=== PATIENT | female | born 1950 | race Caucasian/White ===

== ENCOUNTER 2017-08-21 17:42 | Emergency (ER) | payer MEDICARE ==
[2017-08-21] MEDS ORDERED: Lidocaine 1% w/Epinephrine 1:100K 20 ML VIAL ONE (18:31)
[2017-08-21] MEDS ORDERED: HYDROcodone/Acetaminophen 5/325 mg Tablet ONE (18:37)
[2017-08-21] MEDS ORDERED: Adacel (T-DAP) 0.5 ML VIAL ONE (18:38)
--- NOTE | 2017-08-21 19:10 | RAD ---
THREE VIEWS OF THE RIGHT FOOT 08/21/17 COMPARISON: None. HISTORY: Trauma, pain, foot laceration. FINDINGS: No displaced fracture or evidence of dislocation is seen. No radiopaque foreign body. Mild enthesophy te formation noted at the origin of the plantar aponeurosis. IMPRESSION: No acute osseous abnormality. POS: [facility]
== END 2017-08-21 19:27 | disposition home or self-care (01) ==
LOC: ERS 17:42
DX: S91.011A Laceration without foreign body, right ankle, initial encounter (principal); I10 Essential (primary) hypertension; E11.9 Type 2 diabetes mellitus without complications; I25.2 Old myocardial infarction; Z79.82 Long term (current) use of aspirin; Z79.899 Other long term (current) drug therapy; W45.8XXA Other foreign body or object entering through skin, initial encounter
CPT/HCPCS: 12001; 90471; 90715; J2001

== ENCOUNTER 2018-02-13 14:10 | Outpatient (CLI) | payer MEDICARE ==
--- NOTE | 2018-02-13 16:02 | RAD ---
FRONTAL AND LATERAL IMAGING OF THE CHEST: Date: 02-13-18 Comparison: 08-13-08 History: Chest heaviness. FINDINGS: Heart and mediastinal contours are stable. No pneumothorax, pleural fluid, focal consolidation, or al veolar edema. There is atherosclerotic calcification of the abdominal aorta. There is disc space narr owing and anterior osteophyte formation of the midthoracic spine. Findings are stable when compared t o the prior exams. Probable tiny nodular density noted laterally within the right upper lobe, measuri ng in the 3-4 mm range suggesting a stable small granuloma. IMPRESSION: No acute findings. POS: [facility]
== END 2018-02-13 14:11 | disposition home or self-care (01) ==
LOC: RAD-FRANK 14:10
PROVIDERS: ATTEND Nurse Practitioner Family
DX: R07.9 Chest pain, unspecified (principal)
CPT/HCPCS: 71046

== ENCOUNTER 2018-03-06 09:49 | Outpatient (CLI) | payer MEDICARE | END 2018-03-06 09:50 | disposition home or self-care (01) | LOC: BICMAMMO 09:49 | PROVIDERS: ATTEND Obstetrics & Gynecology | DX: Z12.31 Encounter for screening mammogram for malignant neoplasm of breast (principal) | CPT/HCPCS: 77063; 77067 ==

== ENCOUNTER 2018-09-26 05:52 | Day surgery (SDC) | payer MEDICARE ==
[2018-09-25 10:18] VITALS: BMI 28.5
[2018-09-26] MEDS ORDERED: Iopamidol 370 76% 100 ML VIAL ONE (20:14)
== END 2018-09-26 13:38 | disposition home or self-care (01) ==
LOC: CCL 05:52
PROVIDERS: ATTEND Internal Medicine Cardiovascular Disease
PROC: 4A023N7 Measurement of Cardiac Sampling and Pressure, Left Heart, Percutaneous Approach (ICD-10-PCS; principal; 2018-09-26)
PROC: B2051ZZ Plain Radiography of Left Heart using Low Osmolar Contrast (ICD-10-PCS; 2018-09-26)
DX: I25.10 Atherosclerotic heart disease of native coronary artery without angina pectoris (principal); I25.2 Old myocardial infarction; I10 Essential (primary) hypertension; E78.5 Hyperlipidemia, unspecified; F32.9 Major depressive disorder, single episode, unspecified; M10.9 Gout, unspecified; Z86.73 Personal history of transient ischemic attack (TIA), and cerebral infarction without residual deficits; Z87.891 Personal history of nicotine dependence; Z79.02 Long term (current) use of antithrombotics/antiplatelets; Z79.899 Other long term (current) drug therapy; Z88.0 Allergy status to penicillin; Z88.2 Allergy status to sulfonamides; Z88.8 Allergy status to other drugs, medicaments and biological substances
CPT/HCPCS: 76942; 93458; C1760; C1769; J1644; Q9967

== ENCOUNTER 2018-11-17 09:02 | Observation (INO) | payer MEDICARE ==
[2018-11-17 09:35] LABS: #Basophils 0.1 thou/uL (0.0-0.2); #Eosinphils 0.2 thou/uL (0.0-0.7); #Lymphocytes 1.9 thou/uL (1.20-3.40); #Monocytes 0.5 thou/uL (0.11-0.59); #Neutrophils 4.1 thou/uL (1.40-6.50); %Basophils 1.1 % (0.0-1.0); %Eosinophils 2.3 % (0.0-10.0); %Lymphocytes 28.5 % (21.0-51.0); %Monocytes 7.2 % (0.0-10.0); %Neutrophils 60.8 % (42.0-75.0); Hemoglobin 15.1 g/dL (12.0-16.0); Mean Corpuscular HGB CONC 35.1 g/dL (32.0-36.0); Mean Corpuscular Hemoglobin 31.6 pg (27.0-31.0); Mean Corpuscular Volume 89.9 fL (78.0-98.0); Mean Platelet Volume 8.7 fL (7.4-10.4); Platelet Count 203 thou/uL (130-400); RBC Distribution Width 13.1 % (11.5-14.5); Red Blood Cell (RBC) Count 4.77 mill/uL (4.20-5.40); White Blood Cell (WBC) Count 6.8 thou/uL (4.8-10.8)
--- NOTE | 2018-11-17 09:39 | RAD ---
Chest one view HISTORY: Dizziness. Dyspnea. COMPARISON: 02/13/2018. FINDINGS: Cardiac silhouette is magnified by projection. Pulmonary vasculature is unremarkable. Media stinum and aortic calcification. Lungs remain hyperinflated. Chronic scarring at the right posterior medial lung base. No lobar consolidation or evidence of pneumothorax. Evidence of chronic r ight rotator cuff tear. IMPRESSION: Pulmonary hyperinflation. Chronic-type findings are stable. Atherosclerosis.
[2018-11-17 09:55] LABS: ALT (SGPT) 19 U/L (8-55); AST (SGOT) 22 U/L (5-34); Albumin 4.6 g/dL (3.4-4.8); Alkaline Phosphatase 128 U/L (40-150); Anion Gap 12 mmol/L (10-20); BUN (Urea Nitrogen) 17 mg/dL (9.8-20.1); Bilirubin, Total 0.7 mg/dL (0.2-1.2); CK (CPK) 75 U/L (29-168); Calc. Creatinine Clearance 0 mL/min (70-130); Carbon Dioxide 24 mmol/L (23-31); Chloride 105 mmol/L (98-107); Estimated GFR-MDRD 57; Glucose 107 mg/dL (80-115); Potassium 3.3 mmol/L (3.5-5.1); Protein, Total 7.6 g/dL (6.0-8.3); Sodium 138 mmol/L (136-145)
[2018-11-17 10:29] LABS: Bacteria/HPF None Seen HPF (None Seen); Bilirubin Negative (Negative); Blood, Urine Negative (Negative); Clarity Turbid (Clear); Glucose, Urine (Dipstick) Normal (Negative); Leukocyte 75 Leu/uL (Negative); Nitrite Negative (Negative); Protein, Urine (Dipstick) 20 mg/dL (Neg-Trace); RBC/HPF 0-3 HPF (0-3); Squamous Epithelial 0-3 HPF (0-3); Urobilinogen Normal mg/dL (Less than 2)
[2018-11-17 10:35] LABS: Mucous/LPF 1+ LPF (<2+)
--- NOTE | 2018-11-17 10:35 | CT ---
EXAM: CT brain without contrast HISTORY: 2 episodes of feeling weird. Possible stroke. COMPARISON: 01/19/2011 TECHNIQUE: Multiple contiguous axial images were obtained and a CT of the brain without contrast. FINDINGS: There are scattered hypodensities in the subcortical and periventricular white matter consi stent with small vessel ischemic disease. There is no evidence of hydrocephalus, intracranial hemorrhage, or extra-axial fluid collection. The calvarium and overlying soft tissues are unremarkable. The visualized paranasal sinuses and masto id air cells are well aerated. IMPRESSION: No evidence of acute intracranial abnormality
[2018-11-17] MEDS ORDERED: Aspirin Chewable 81 MG TAB ONE (11:21)
[2018-11-17] MEDS ORDERED: ISOVUE-370 76%-LOCM 1 ML ONE (16:21)
[2018-11-17] MEDS ORDERED: Ondansetron PF 4 MG/2 ML Vial IVP PRN ×3 (16:57→17:47)
[2018-11-17] MEDS ORDERED: Ondansetron ODT 4 MG TAB SL PRN (16:57)
[2018-11-17] MEDS ORDERED: hydrALAZINE 20 MG/ML VIAL SLOW IVP PRN (17:47)
[2018-11-17] MEDS ORDERED: Acetaminophen 325 MG TAB PO PRN (17:47)
[2018-11-17] MEDS ORDERED: Ondansetron ODT 4 MG TAB PO PRN ×2 (17:47)
--- NOTE | 2018-11-17 20:21 | CT ---
CT ANGIOGRAM NECK WITH IV CONTRAST AND 3D RECONSTRUCTIONS: HISTORY: Aphagia and dysarthria. Left-sided facial numbness that has now resolved. TIA. COMPARISON: None. FINDINGS: There is mild atherosclerotic calcification seen involving the aortic arch and the origin of the grea t vessels. There is a common origin of the nominate artery and left common carotid artery. The bilateral subclavian arteries, as well as the bilateral common carotid arteries are patent. There is prominent atherosclerotic plaque and atherosclerotic calcification involving the lateral dis ebony common carotid arteries, as well as involving the carotid bulbs and the proximal internal carotid arteries, resulting in irregularity of the lumen. There is mild (less than 50%) narrowing involving the proximal internal carotid arteries bilaterally, greater on the left. There is mild atherosclero tic plaque and narrowing involving the proximal left external carotid artery. The right external car otid artery is patent. The vertebral arteries are co-dominant and patent bilaterally. The basilar artery appears patent. The intracranial arteries are not evaluated on this exam. A subcentimeter, noz-wmtpz-jq-characterize, hypodense lesion is seen in the right lobe of the thyroid gland. The lung apices demonstrate biapical pleural and parenchymal scarring, which is partially calcified o n the right. Bilateral parotid and submandibular glands have a normal appearance. A few increased density nodules are seen in each parotid gland, likely related to intraparotid lymph nodes. Degenerative changes are seen in the cervical spine. A mucus retention cyst is noted in the left maxillary antrum, with mucosal thickening seen at the pos terior right ethmoidal air cell. IMPRESSION: 1. Atherosclerotic plaque and calcification involving the carotid bulbs and proximal internal caroti d arteries with mild narrowing within the proximal internal carotid arteries bilaterally, greater on the left, but the degree of narrowing is less than 50%. 2. Patent bilateral vertebral arteries. 3. Intracranial circulation was not imaged on this examination. 4. Chronic biapical lung changes. 5. Degenerative changes in the cervical spine. 6. Subcentimeter, cky-ymrwl-na-characterize, hypodense lesion, right lobe of thyroid gland. POS: [facility]
[2018-11-17] MEDS: Amlodipine 5 MG TAB PO SCH (20:55)
[2018-11-17] MEDS: Carvedilol 25 MG TAB PO SCH (20:55)
[2018-11-17] MEDS ORDERED: Famotidine 20 MG TAB PO SCH (21:00)
--- NOTE | 2018-11-17 23:20 | HP ---
PRIMARY CARE PHYSICIAN: RAUL Fam CHIEF COMPLAINT: Feeling dizzy and muscle pressure in my ears. HISTORY OF PRESENT ILLNESS: Ms. Suarez is a very pleasant 68-year-old female, who has a history of hypertension, hypercholesterolemia, and coronary artery disease. She was in her usual state of health until about 3 a.m. this morning, when she started having an episode of feeling dizzy and mild headache. She describes it as having a muscle pressure in both of her ears, which started quite suddenly and it lasted about 10 to 15 minutes. She said she had another episode around 7:30 a.m. This time, her hands and her legs felt weak and she felt like there was an ice cold feeling in her chest. She said she thought she was "." She also had some nausea and vomited once and around 8, her had come in from the field and she was concerned about this sensation and asked to be taken to the ER. In the ER, she was feeling a little bit better, but was feeling tired all over. During this time, she denied having any specific weakness in her arms or legs other than just a generalized weakness. No pains in her chest that she could say. No shortness of breath, although she says she could not really tell and she denies any sinus congestion, but says that a couple of days ago she had a lot of sneezing off and on. Otherwise, no other complaints. She does have a history of coronary artery disease, but says these symptoms did not seem like when she had her heart attack before and it is also noted that she had a cardiac catheterization just a month ago, in which there was just some mild coronary artery disease, but no significant flow-limiting disease. REVIEW OF SYSTEMS: CONSTITUTIONAL: There has been no fevers or chills. No night sweats. No weight loss. HEENT: As the history of present illness. CARDIOVASCULAR: She denies any chest pain. No shortness of breath. No PND. No orthopnea. No lower extremity edema. GASTROINTESTINAL: She has had some nausea and vomiting. No abdominal pain. No hematemesis. No hematochezia. GENITOURINARY: No urinary frequency or hematuria. No hesitancy. MUSCULOSKELETAL: No muscle pains, weakness, or joint pains. NEUROLOGIC: No focal weakness. No seizures. SKIN AND INTEGUMENT: No skin changes. No rash. PSYCHIATRIC: No symptoms of anxiety or depression. PAST MEDICAL HISTORY: Significant for gout, hypertension, hypercholesterolemia, coronary artery disease, and cerebrovascular disease in 2010, which left her with some speech disturbance. PAST SURGICAL HISTORY: She has had a cardiac catheterization, appendectomy, hysterectomy and tonsillectomy. ALLERGIES: TO BENADRYL, WHICH CAUSED HER SHAKE WELL PENICILLIN AND SULFA, WHICH CAUSED HER A RASH. SOCIAL HISTORY: She lives with her in [place]. She is a former smoker. She smoked for about 20 years. No alcohol use and she is a full code. FAMILY HISTORY: History of coronary artery disease in her father, who had bypass surgery and some rhythm problems and sister also had coronary artery disease. CURRENT MEDICATIONS: Include; 1. Zyrtec 10 mg daily. 2. Lasix 40 mg daily. 3. Famotidine 40 mg a day. 4. Plavix 75 mg daily. 5. Carvedilol 12.5 mg twice a day. 6. Amlodipine 5 mg daily. 7. Allopurinol 300 mg daily. 8. Colchicine 0.6 mg daily. PHYSICAL EXAMINATION: GENERAL: She is alert and oriented. She appears to be in no acute distress. She is well developed and well nourished. VITAL SIGNS: Blood pressure was 143/91, heart rate 65, respiratory rate of 17, and temperature is 97. HEENT: Her pupils are equal, round, and reactive. Extraocular muscles are intact. Her sclerae are anicteric. Tympanic membranes pearly manrique. There is no fluid behind the drums. Throat, there is no erythema, no exudates. NECK: No adenopathy. No bruits. LUNGS: Clear to auscultation. I did not appreciate any wheezing. No rales. No rhonchi. CARDIOVASCULAR: She has a normal S1 and S2. I did not appreciate an S3 or S4. No murmurs, clicks, or rubs. ABDOMEN: Soft. It is nontender and nondistended. Positive for bowel sounds. There is no rebound or guarding. No organomegaly. EXTREMITIES: There is no calf tenderness. No erythema. No joint effusions. NEUROLOGIC: Her cranial nerves 2 through 12 are grossly intact. Her muscle strength is 5/5 in both her upper and lower extremities. She does not have any nystagmus. SKIN AND INTEGUMENT: No skin changes. No rash. LABORATORY DATA: On her EKG, sinus rhythm, the rate is 58. She had some Q-waves in II, III, and AVF as well as some nonspecific ST wave changes. On her chest x-ray, her heart size is normal. She does have some mild hyperinflation. There is no increase in her pulmonary vascular markings. This is also by my reading. CBC; white blood cell count 6.8, hemoglobin 15.1, hematocrit is 42.9, and platelet count is 203. Sodium is 138, potassium 3.3, chloride is 105, CO2 is 24, BUN of 17, creatinine 0.96, and glucose is 107. Troponin is less than 0.010. Urinalysis was essentially negative except for some white blood cells and 2+ crystals. ASSESSMENT: This is a pleasant 68-year-old female, who presents to the emergency room with some unusual symptomatology including feeling dizzy, muscle pressure in her ears as well as ice cold feeling in her chest. Initially, I was thinking coronary artery disease, but she had a recent cardiac catheterization just a month ago without any significant flow-limiting disease. Her head and neck exam is essentially normal. And I was not able to elicit any nystagmus. However, with a brief episodic description of her symptoms, there could be a concern for possible transient ischemic attack. With the dizziness, the concern would be for the posterior circulation. Therefore, the patient will be treated as if this is a form of transient ischemic attack. Arrhythmias also a potential possibility as well as possible fluctuations in blood pressure such as orthostatic hypotension. Therefore, for her evaluation, she will be placed in observation. We will get a CT angiogram of the head and neck to look at her cerebral vascular circulation. We will also get an echocardiogram and monitor her on telemetry. We will also check orthostatic vital signs as well. 1. For hypertension, we will continue her usual antihypertensive medications as well as p.r.n. medicines. 2. Coronary artery disease. This appears to be clinically stable. At least her initial troponin was negative and as previously mentioned, she has had a recent cardiac catheterization without any significant new findings. 3. Gout. This appears to be clinically quiescent and we will continue her usual medications including allopurinol and further recommendations will depend on the patient's clinical course. Job ID: [id number]
[2018-11-18 04:43] LABS: #Basophils 0.1 thou/uL (0.0-0.2); #Eosinphils 0.2 thou/uL (0.0-0.7); #Monocytes 0.7 thou/uL (0.11-0.59); #Neutrophils 4.7 thou/uL (1.40-6.50); %Basophils 0.8 % (0.0-1.0); %Eosinophils 2.5 % (0.0-10.0); %Lymphocytes 26.1 % (21.0-51.0); %Monocytes 8.8 % (0.0-10.0); %Neutrophils 61.7 % (42.0-75.0); Hemoglobin 13.8 g/dL (12.0-16.0); Mean Corpuscular HGB CONC 34.4 g/dL (32.0-36.0); Mean Corpuscular Hemoglobin 32.4 pg (27.0-31.0); Mean Platelet Volume 8.4 fL (7.4-10.4); Platelet Count 188 thou/uL (130-400); RBC Distribution Width 13.3 % (11.5-14.5); Red Blood Cell (RBC) Count 4.26 mill/uL (4.20-5.40); White Blood Cell (WBC) Count 7.6 thou/uL (4.8-10.8)
[2018-11-18 04:58] LABS: Anion Gap 12 mmol/L (10-20); BUN (Urea Nitrogen) 18 mg/dL (9.8-20.1); Calc. Creatinine Clearance 72 mL/min (70-130); Calcium 9.8 mg/dL (7.8-10.44); Carbon Dioxide 26 mmol/L (23-31); Cardiac Risk 6.4 (Less than 4.5); Chloride 107 mmol/L (98-107); Cholesterol 257 mg/dl (< 200 Desired); Estimated GFR-MDRD 61; Glucose 101 mg/dL (80-115); HDL Cholesterol 40 mg/dL (>60 Neg Risk); LDL Cholesterol, Calculated 160 mg/dL; Potassium 4.1 mmol/L (3.5-5.1); Sodium 141 mmol/L (136-145); Triglycerides 286 mg/dL (Less than 150)
[2018-11-18] MEDS ORDERED: Clopidogrel Bisulfate 75 MG TAB PO SCH (09:00)
[2018-11-18] MEDS ORDERED: Allopurinol 300 MG TAB PO SCH (09:00)
[2018-11-18] MEDS ORDERED: Aspirin 325 mg Enteric Coated Tablet PO SCH (09:00)
[2018-11-18] MEDS ORDERED: Fish Oil 1,000 MG CAP PO SCH (09:00)
[2018-11-18] MEDS ORDERED: Enoxaparin Sodium 40 MG/0.4 ML SYRINGE SC SCH (09:00)
--- NOTE | 2018-11-18 09:12 | MRI ---
MRI BRAIN WITHOUT CONTRAST: Date: 11/18/18 HISTORY: TIA. FINDINGS: Correlation is made with CT brain of 11/17/18 and 01/19/11. An old infarction in the left posterior frontal lobe is again seen. Multiple foci of T2 prolongation are present in the periventricular white matter consistent with chronic small vessel ischemic disease . The ventricular size is appropriate and the basilar cisterns are patent. No restricted diffusion is seen. No evidence of acute infarct, hemorrhage, midline shift, or abnormal extra-axial fluid collections are seen. There is mild mucosal disease in the paranasal sinuses. IMPRESSION: No evidence of acute intracranial process. POS: [facility]
[2018-11-18] MEDS: Amlodipine 5 MG TAB PO SCH (10:02)
[2018-11-18] MEDS: Carvedilol 25 MG TAB PO SCH (10:03)
[2018-11-18 15:50] VITALS: BP 156/74; TEMP 97.5
--- NOTE | 2018-11-18 18:26 | CON ---
DATE OF CONSULTATION: 11/18/2018 CONSULTING PHYSICIAN: Hospitalist Service. IMPRESSION: 1. Probable migraine. 2. Prior stroke with residual partial expressive aphasia. 3. Current management with stroke prevention plan appears adequate. PLAN: Monitor for further events before deciding on path of treatment. HISTORY OF PRESENT ILLNESS: Ms. Suarez is a 68-year-old white female with a past history of stroke and migraine headache. She has not been bothered with a migraine in quite some time. She was getting ready early in the morning when she started experiencing a fairly severe left frontal headache. This was associated with some progressive nausea and dizziness. She felt a bit lightheaded, but did not lose consciousness. She did start to vomit. She felt generally weak, but was able to get around independently. She had a cold feeling across her chest. She came into the emergency room for evaluation. Her symptoms lasted about 8 hours. She is now back to her baseline. Her MRI of the brain showed an old area of infarction in the left frontal region. No new acute changes were found. CT angiogram showed some less than 50% bilateral carotid disease. Lipid ratio was 6.4. Urine suggested a mild urinary tract infection. PAST MEDICAL HISTORY: As listed. ALLERGIES: BENADRYL, SULFA, PENICILLIN. FAMILY HISTORY: Noncontributory. MEDICATIONS: Reviewed. REVIEW OF SYSTEMS: Ten-system review of systems is otherwise negative. PHYSICAL EXAMINATION: GENERAL: She is a healthy-appearing elderly woman, in no distress. VITAL SIGNS: Have been stable. She is afebrile. HEENT: Pupils equal and reactive. Conjunctivae clear. Oropharynx clear. NECK: Supple. EXTREMITIES: No cyanosis or edema. NEUROLOGIC: She is alert and cooperative. Her speech is clear, but has a pausing quality as she searches for words frequently during the conversation. No facial asymmetry was appreciated. She seemed to have equal strength. Sensation was intact bilaterally. No abnormal movements were seen. She can walk independently. IMAGING STUDIES: EKG shows sinus rhythm. SUMMARY: This is a 68-year-old woman with a past history of a stroke, who presented with severe headache, nausea, vomiting, and lightheadedness suggesting migraine. Her MRI was negative for any ischemic event. I would be happy to follow up with her as an outpatient. Job ID: [id number]
--- NOTE | 2018-11-19 00:56 | DIS ---
DATE OF ADMISSION: 11/17/2018 DATE OF DISCHARGE: 11/18/2018 CHIEF COMPLAINT ON ADMISSION: Headache, dizziness, "chest coldness." DISCHARGE DIAGNOSES: 1. Probable migraine, acute cerebrovascular accident ruled out. 2. Prior cerebrovascular accident with mild residual expressive aphasia. 3. Mild multivessel coronary artery disease per left heart catheterization September 2018, with 35% lesion in LAD and 40% lesion in the circumflex, followed by Dr. Leyva. 4. Hyperlipidemia, poorly controlled. 5. Hypertension. 6. Gout. BRIEF HOSPITAL COURSE: Ms. Suarez is a very pleasant 68-year-old female with past medical history significant for hypertension, hypercholesterolemia, mild coronary artery disease per left heart catheterization last month and prior CVA, who presented with complaints of dizziness and headache. She described some other symptoms such as a muscle pressure in both of her ears, as well as "coldness" feeling in her chest. She did have some associated nausea and vomiting and due to her symptoms, she was brought to the ER by her family for further workup and treatment. The patient underwent acute CVA rule out, which included an MRI which revealed an old infarction of the left posterior frontal lobe, multiple foci of T2 prolongation in the periventricular white matter consistent with chronic small vessel ischemic disease, and no evidence of acute intracranial process. Her CTA of the head and neck was negative for any significant stenosis. Her presenting symptoms have all resolved. She was seen in consultation by Dr. Aldridge, who felt that her symptoms were most likely consistent with migraine headache. He recommended continued medical therapy, aspirin and Plavix. The patient feels well today. She has ambulated without issue. She denies any further chest pain, nausea, vomiting, or dizziness. She has no headache. Her workup here has been negative. Her lab work was significant for hyperlipidemia with triglycerides reading of 286, cholesterol 257, LDL 160, and HDL of 40. Statin therapy was initiated given the fact that she has had history of prior CVA and has known coronary artery disease. DISCHARGE DISPOSITION: Home. DISCHARGE CONDITION: Stable. FOLLOWUP AND DISCHARGE INSTRUCTIONS: The patient will follow up with both Neurology as well as her item processing clerk, Dr. Leyva, with whom she has an appointment next week. Of note, her echocardiogram showed some diastolic dysfunction and mild LVH, but had preserved EF. She will continue her aspirin and Plavix. New medications will be statin. I have sent in a prescription for atorvastatin 20 mg p.o. at bedtime. She will need to have her liver function enzymes, as well as her cholesterol rechecked in approximately 3 months. She will continue follow up with her PCP as well. She will be discharged home in good condition today. Appreciate Neurology recommendations. Job ID: [id number]
== END 2018-11-18 18:19 | disposition home or self-care (01) ==
LOC: ERS 09:02 → ERHOLD 11:05 → 2SE 16:51
PROVIDERS: ADMIT Internal Medicine; ATTEND Internal Medicine
DX: R42 Dizziness and giddiness (principal); R51 Headache; I10 Essential (primary) hypertension; E78.5 Hyperlipidemia, unspecified; M10.9 Gout, unspecified; I25.10 Atherosclerotic heart disease of native coronary artery without angina pectoris; E78.00 Pure hypercholesterolemia, unspecified; I25.2 Old myocardial infarction; Z79.82 Long term (current) use of aspirin; Z88.0 Allergy status to penicillin; Z79.899 Other long term (current) drug therapy; Z88.2 Allergy status to sulfonamides; Z88.8 Allergy status to other drugs, medicaments and biological substances
CPT/HCPCS: 70450; 70498; 70551; 71045; 80048; 80053; 80061; 82550; 84484; 85025 ×2; 93005; 93306; 96372; 99285; G0378 ×3; 36415; 81003; 81015; J1650; Q9966

== ENCOUNTER 2019-04-02 10:15 | Outpatient (CLI) | payer MEDICARE ==
--- NOTE | 2019-04-02 12:28 | MMO ---
Bilateral MAMMO Bilat Screen [facility]. CLINICAL HISTORY: Patient is 68 years old and is seen for screening. The patient has no family history of breast cancer. The patient has no personal history of cancer. VIEWS: The views performed were: bilateral craniocaudal with tomosynthesis and bilateral mediolateral oblique with tomosynthesis. FILMS COMPARED: The present examination has been compared to prior imaging studies performed at [facility] on 02/25/2015, 02/27/2016, 02/28/2017 and 03/06/2018. This study has been interpreted with the assistance of computer-aided detection. MAMMOGRAM FINDINGS: There are scattered fibroglandular densities. There are no suspicious masses, suspicious calcifications, or new areas of architectural distortion. IMPRESSION: THERE IS NO MAMMOGRAPHIC EVIDENCE OF MALIGNANCY. A ROUTINE FOLLOW-UP MAMMOGRAM IN 1 YEAR IS RECOMMENDED. THE RESULTS OF THIS EXAM WERE SENT TO THE PATIENT. ACR BI-RADS Category 1 - Negative MAMMOGRAPHY NOTE: 1. A negative mammogram report should not delay a biopsy if a dominant of clinically suspicious mass is present. 2. Approximately 10% to 15% of breast cancers are not detected by mammography. 3. Adenosis and dense breasts may obscure an underlying neoplasm. Reported by: GAGANDEEP WALLS MD Electonically Signed: [id number]
== END 2019-04-02 10:16 | disposition home or self-care (01) ==
LOC: BICMAMMO 10:15
PROVIDERS: ATTEND Obstetrics & Gynecology
DX: Z12.31 Encounter for screening mammogram for malignant neoplasm of breast (principal)
CPT/HCPCS: 77063; 77067

== ENCOUNTER 2020-02-29 16:20 | Inpatient (IN) | payer MEDICARE ==
[~2020-02-29 16:20] MED LIST: Iopamidol-370 76% 500 ML 1 ML ONE
--- NOTE | 2020-02-29 18:00 | RAD ---
Chest one view HISTORY: Dyspnea. COMPARISON: 11/17/2018. FINDINGS: Cardiac silhouette is magnified and upper limits of normal in size. Pulmonary vasculature i s unremarkable. Mediastinum is midline with aortic calcification. No lobar consolidation or evidence of pneumothorax. IMPRESSION : No active cardiopulmonary abnormalities are demonstrated. Atherosclerosis.
[2020-02-29 18:07] LABS: #Basophils 0.1 thou/uL (0.0-0.2); #Eosinphils 0.3 thou/uL (0.0-0.7); #Lymphocytes 2.3 thou/uL (1.20-3.40); #Monocytes 0.7 thou/uL (0.11-0.59); #Neutrophils 5.3 thou/uL (1.40-6.50); %Basophils 0.8 % (0.0-1.0); %Eosinophils 3.4 % (0.0-10.0); %Lymphocytes 26.2 % (21.0-51.0); %Monocytes 7.6 % (0.0-10.0); %Neutrophils 61.9 % (42.0-75.0); Hemoglobin 13.3 g/dL (12.0-16.0); Mean Corpuscular HGB CONC 34.2 g/dL (32.0-36.0); Mean Corpuscular Hemoglobin 32.2 pg (27.0-31.0); Mean Platelet Volume 8.4 fL (7.4-10.4); Platelet Count 206 thou/uL (130-400); RBC Distribution Width 13.2 % (11.5-14.5); Red Blood Cell (RBC) Count 4.14 mill/uL (4.20-5.40); White Blood Cell (WBC) Count 8.6 thou/uL (4.8-10.8)
--- NOTE | 2020-02-29 18:22 | CT ---
CT head noncontrast HISTORY: TIA. COMPARISON: 11/17/2018. FINDINGS: There is no evidence of acute intracranial hemorrhage or infarct. Encephalomalacia in the l eft frontal lobe and each basal ganglia consistent with old areas of ischemic insult are stable. There is no mass effect or shift of midline structures. Visualized paranasal sinuses remain well aera anisa. IMPRESSION : Chronic findings are stable. No acute intracranial abnormalities are demonstrated.
[2020-02-29 18:26] LABS: ALT (SGPT) 30 U/L (8-55); AST (SGOT) 25 U/L (5-34); Albumin 4.1 g/dL (3.4-4.8); Alkaline Phosphatase 109 U/L (40-110); Anion Gap 15 mmol/L (10-20); BUN (Urea Nitrogen) 23 mg/dL (9.8-20.1); Bilirubin, Total 0.5 mg/dL (0.2-1.2); Calc. Creatinine Clearance 0 mL/min (70-130); Calcium 9.3 mg/dL (7.8-10.44); Carbon Dioxide 27 mmol/L (23-31); Chloride 108 mmol/L (98-107); Estimated GFR-MDRD 43; Globulin 2.6 g/dL (2.4-3.5); Glucose 105 mg/dL (83-110); Magnesium 2.3 mg/dL (1.6-2.6); Protein, Total 6.7 g/dL (6.0-8.3); Sodium 146 mmol/L (136-145)
[2020-02-29] MEDS ORDERED: Aspirin Chewable 81 MG TAB ONE ×2 (18:40)
[2020-02-29 19:15] LABS: Bilirubin Negative (Negative); Blood, Urine Negative (Negative); Calcium Oxalate Crystals 2+ HPF (None Seen); Clarity Clear (Clear); Glucose, Urine (Dipstick) Normal (Negative); Ketone, Urine Negative (Negative); Leukocyte 500 Leu/uL (Negative); Nitrite Negative (Negative); Protein, Urine (Dipstick) Negative (Neg-Trace); Specific Gravity, Urine 1.019 (1.002-1.036); Urobilinogen Normal mg/dL (Less than 2); WBC/HPF 21-50 HPF (0-3); pH, Urine 5.5 (5.0-9.0)
[2020-02-29 19:19] LABS: Bacteria/HPF 1+ HPF (None Seen)
[2020-02-29] MEDS ORDERED: Ondansetron PF 4 MG/2 ML Vial IVP PRN (21:08)
[2020-02-29] MEDS ORDERED: Ondansetron ODT 4 MG TAB PO PRN (21:08)
--- NOTE | 2020-02-29 21:26 | PDOC.HHP ---
Hospitalist HPI - History of Present Illness Left-sided weakness History of Present Illness: This is a 69-year-old female patient with a history of stroke,Hypertension, hyperlipidemia who presents today with left-sided weakness while she was shopping. Patient was in the supermarket with her when she noticed that she had dragging her left foot with stiff feeling of her left arm. This was concerning to her because this was the third time it had occurred in the past couple of weeks. She decided to come to the ED for further evaluation. At the time of the event, she denied any headache dizziness facial droop. Speech was slurred at baseline but no worsening. She denied any chest pain or palpitations or shortness of breath. As presentation Blood pressure was 168/82, pulse 77, respiratory rate 18 and temperature 97.7. Saturating 97 on room air. Her labs showed sodium of 146, BUN 23, creatinine 1.22. Chest x-ray showed no acute cardiopulmonary process. CT scan of the head showed chronic stroke but no acute changes. She was given 325 mg of aspirin By the time she had arrived at the ED symptoms had disappeared and she was back at baseline with no focal weakness Hospitalist team was consulted for admission Hospitalist ROS - Review of Systems Constitutional: denies: fever, chills, sweats Respiratory: denies: cough, shortness of breath, hemoptysis Cardiovascular: denies: chest pain, palpitations, orthopnea, paroxysmal noc. dyspnea Gastrointestinal: denies: nausea, vomiting, abdominal pain, diarrhea Genitourinary: denies: dysuria, frequency, incontinence Musculoskeletal: denies: neck pain, shoulder pain, arm pain Neurological: reports: weakness, numbness Hospitalist History - Past Medical History Other Medical History: Hypertension, CVA, hyperlipidemia - Past Surgical History Other Surgical History: Hysterectomy, tonsillectomy - Family History Family History: reports: no pertinent history - Social History Smoking Status: Never smoker Alcohol: reports: None Living Situation: With Family Activity level: independent ambulation - Exam General Appearance: awake alert Eye: PERRL, anicteric sclera ENT: normocephalic atraumatic, moist mucosa Neck: supple, symmetric, no lymphadenopathy Heart: RRR, no murmur, no gallops, no rubs, normal peripheral pulses Respiratory: no wheezes, no rales, no ronchi, normal chest expansion, normal pe rcussion Gastrointestinal: soft, non-tender, non-distended, normal bowel sounds Extremities: no cyanosis, no clubbing, no edema Neurological - other findings: Slurred speech otherwise no focal cranial nerve deficits. Power 5/5 in all Psychiatric: normal affect, normal behavior, A&O x 3 Hospitalist Results - Labs Result Diagrams: 02/29/20 17:58 02/29/20 17:58 Lab results: WBC 8.6 thou/uL (4.8-10.8) 02/29/20 17:58 Hgb 13.3 g/dL (12.0-16.0) 02/29/20 17:58 Hct 38.9 % (36.0-47.0) 02/29/20 17:58 MCV 94.0 fL (78.0-98.0) 02/29/20 17:58 Plt Count 206 thou/uL (130-400) 02/29/20 17:58 Neutrophils % 61.9 % (42.0-75.0) 02/29/20 17:58 Sodium 146 mmol/L (136-145) H 02/29/20 17:58 Potassium 4.0 mmol/L (3.5-5.1) 02/29/20 17:58 Chloride 108 mmol/L (98-107) H 02/29/20 17:58 Carbon Dioxide 27 mmol/L (23-31) 02/29/20 17:58 BUN 23 mg/dL (9.8-20.1) H 02/29/20 17:58 Creatinine 1.22 mg/dL (0.6-1.1) H 02/29/20 17:58 Glucose 105 mg/dL (83-110) 02/29/20 17:58 Calcium 9.3 mg/dL (7.8-10.44) 02/29/20 17:58 Total Bilirubin 0.5 mg/dL (0.2-1.2) 02/29/20 17:58 AST 25 U/L (5-34) 02/29/20 17:58 ALT 30 U/L (8-55) 02/29/20 17:58 Alkaline Phosphatase 109 U/L (40-110) 02/29/20 17:58 Troponin I 0.019 ng/mL (< 0.028) 02/29/20 17:58 Serum Total Protein 6.7 g/dL (6.0-8.3) 02/29/20 17:58 Albumin 4.1 g/dL (3.4-4.8) 02/29/20 17:58 Urine Ketones Negative mg/dL (Negative) 02/29/20 18:50 Urine Blood Negative (Negative) 02/29/20 18:50 Urine Nitrite Negative (Negative) 02/29/20 18:50 Ur Leukocyte Esterase 500 Shawna/uL (Negative) A 02/29/20 18:50 Urine RBC 4-6 HPF (0-3) A 02/29/20 18:50 Urine WBC 21-50 HPF (0-3) A 02/29/20 18:50 Ur Squamous Epith Cells 4-6 HPF (0-3) A 02/29/20 18:50 Urine Bacteria 1+ HPF (None Seen) A 02/29/20 18:50 Hospitalist H&P A/P - Plan Plan: This is a 69-year-old female patient history of CVA, hypertension hyperlipidemia who presents to the ED after a brief period of weakness in her left lower limb and numbness in her left upper limb Symptoms had resolved at the time of presentation. She will be admitted and will do for TIA. Stroke/TIA Received aspirinwe will continue MRI, CTA in a.m. PT OT evaluation Fall precautions Neuro consult in a.m. Hypertension We will allow for permissive hypertension Hold blood pressure medications for SBP less than 220. Possible NATIVIDAD/CKD. Creatinine slightly elevated at 1.22 Repeat BMP in a.m. CODE STATUSDNR VT prophylaxisLovenox
[2020-02-29 21:43] LABS: Troponin I 0.016 ng/mL (< 0.028)
--- NOTE | 2020-02-29 22:50 | PDOC.FMACP ---
Advance Care Planning - Note Summary: Advanced Care Planning was discussed. The diagnosis, prognosis and goals of care were discussed. Patient wishes to be DNR. was in the room when she made the decision. Has been on would be her surrogate decision maker
--- NOTE | 2020-02-29 22:52 | CT ---
CT arteriogram head with IV contrast and 3-D imaging HISTORY: TIA. FINDINGS: [place] of [place] is intact. Good contrast flow is demonstrated into each cerebral and cereb ellar system. No focal aneurysm or filling defect evident. Calcification is present within the carotid siphons. IMPRESSION : Atherosclerosis. No acute vascular abnormalities are demonstrated.
[2020-03-01 00:22] LABS: Troponin I Less than 0.010 ng/mL (< 0.028)
[2020-03-01 04:42] LABS: #Basophils 0.1 thou/uL (0.0-0.2); #Eosinphils 0.2 thou/uL (0.0-0.7); #Lymphocytes 1.8 thou/uL (1.20-3.40); #Monocytes 0.5 thou/uL (0.11-0.59); #Neutrophils 3.6 thou/uL (1.40-6.50); %Basophils 1.1 % (0.0-1.0); %Eosinophils 3.8 % (0.0-10.0); %Lymphocytes 28.7 % (21.0-51.0); %Monocytes 8.5 % (0.0-10.0); %Neutrophils 57.9 % (42.0-75.0); Hemoglobin 13.4 g/dL (12.0-16.0); Mean Corpuscular HGB CONC 35.1 g/dL (32.0-36.0); Mean Corpuscular Hemoglobin 33.5 pg (27.0-31.0); Mean Corpuscular Volume 95.3 fL (78.0-98.0); Mean Platelet Volume 8.5 fL (7.4-10.4); Platelet Count 177 thou/uL (130-400); RBC Distribution Width 13.1 % (11.5-14.5); Red Blood Cell (RBC) Count 4.02 mill/uL (4.20-5.40); White Blood Cell (WBC) Count 6.2 thou/uL (4.8-10.8)
[2020-03-01 05:03] LABS: Anion Gap 14 mmol/L (10-20); BUN (Urea Nitrogen) 22 mg/dL (9.8-20.1); Calc. Creatinine Clearance 67 mL/min (70-130); Calcium 9.1 mg/dL (7.8-10.44); Carbon Dioxide 26 mmol/L (23-31); Cardiac Risk 5.8 (Less than 4.5); Chloride 106 mmol/L (98-107); Cholesterol 197 mg/dl (< 200 Desired); Estimated GFR-MDRD 55; Glucose 102 mg/dL (83-110); HDL Cholesterol 34 mg/dL (>60 Neg Risk); LDL Cholesterol, Calculated 100 mg/dL; Potassium 3.8 mmol/L (3.5-5.1); Sodium 142 mmol/L (136-145); Triglycerides 314 mg/dL (Less than 150)
[2020-03-01] MEDS ORDERED: Enoxaparin Sodium 40 MG/0.4 ML SYRINGE ONE (08:08)
[2020-03-01] MEDS: Enoxaparin Sodium 40 MG/0.4 ML SYRINGE SC SCH (08:28)
[2020-03-01] MEDS ORDERED: Iron, Sodium Ferric Gluconate 125 MG in Sodium Chloride 0.9% 100 ML IVPB SCH (09:00)
--- NOTE | 2020-03-01 10:00 | MRI ---
Exam: Brain MRI without contrast HISTORY: Stroke COMPARISON: 11/18/2018 FINDINGS: Calvarial marrow signal intensity: Appropriate T1 signal Gradient echo sequence: No hemorrhage Brain parenchyma: No mass, mass effect or midline shift. Brain volume, age-appropriate. Stable enceph alomalacia and gliosis involving the left frontotemporal region. Cortical manrique-white matter differentiation: Preserved Restricted diffusion: Central arterial flow voids are maintained. Absent restricted diffusion White matter signal intensities: T2, FLAIR white matter hyperintensities due to chronic small vessel ischemic changes Sinuses: Adequate aeration of the paranasal sinuses and mastoid air cells. IMPRESSION: 1. Absent restricted diffusion. No acute infarct.
--- NOTE | 2020-03-01 12:26 | CON ---
NEUROLOGY CONSULTATION DATE OF CONSULTATION: 03/01/2020 REASON FOR CONSULTATION: Left-sided weakness/transient ischemic attack. HISTORY OF PRESENT ILLNESS: Ms. Suarez is a 69-year-old female with history significant for prior TIA, hypertension, hyperlipidemia, presented today with left-sided weakness while she was shopping. History is obtained from the patient and the . Per , he noticed she was dragging her left foot, which felt heavy because of numbness and also there was weakness in the left arm. The patient was concerned about the pinched nerve yesterday and decided to go to a chiropractor, who noticed she was also weak in the left upper extremity and speech was also slurred at baseline, so he advised her to come to the emergency room to be evaluated for stroke. The symptoms lasted for couple of hours. Per the patient's , she has two similar episodes prior to this one. Currently, the patient is back to her baseline. When she arrived at the emergency room, her blood pressure was 168/82, pulse 77, respiratory rate 18. Head CT was done, which did not reveal any acute intracranial pathology. She was given aspirin and admitted for further evaluation. The patient denies nausea, vomiting, headache, chest pain, abdominal pain, problems with swallowing, vertigo, blurred vision, double vision, loss of vision, or loss of consciousness associated with the episode. She denies any recent sick contacts, chest pain, abdominal pain, or exposure to COVID. PAST MEDICAL HISTORY: Hypertension, prior TIAs, and hyperlipidemia. PAST SURGICAL HISTORY: Hysterectomy and tonsillectomy. FAMILY HISTORY: No significant family history for stroke. SOCIAL HISTORY: , lives with her . Denies smoking, alcohol, or illegal drug abuse. Allergies: Penicillin, sulfa, diphenhydramine REVIEW OF SYSTEMS: Constitutional: denies: fever, chills, sweats Respiratory: denies: cough, shortness of breath, hemoptysis Cardiovascular: denies: chest pain, palpitations, orthopnea, paroxysmal noc. dyspnea Gastrointestinal: denies: nausea, vomiting, abdominal pain, diarrhea Genitourinary: denies: dysuria, frequency, incontinence Musculoskeletal: denies: neck pain, shoulder pain, arm pain Neurological: reports: weakness, numbness PHYSICAL EXAMINATION: VITAL SIGNS: Blood pressure 170/90, pulse 80, and respiratory rate 18. General Appearance: awake alert Eye: PERRL, anicteric sclera ENT: normocephalic atraumatic, moist mucosa Neck: supple, symmetric, no lymphadenopathy Heart: RRR, no murmur, no gallops, no rubs, normal peripheral pulses Respiratory: no wheezes, no rales, no ronchi, normal chest expansion, normal percussion Gastrointestinal: soft, non-tender, non-distended, normal bowel sounds Extremities: no cyanosis, no clubbing, no edema Neurological - Mental status, the patient is alert and oriented to person, place, and time. Speech is clear. Recent and remote memory intact. Fund of knowledge is appropriate. Cranial nerves 2 through 12 intact. Motor, muscle tone, and bulk are normal. Strength 5/5 bilaterally. Sensory intact. Cerebellar, finger-nose testing intact. Gait deferred due to the patient's safety reason DATA REVIEWED: Labs were significant for acute kidney injury with BUN of 23 and creatinine of 1.2, rest was essentially unremarkable. Head CT reviewed, which was negative for acute intracranial pathology. MRI of the brain did not reveal any acute intracranial pathology. WBC 8.6 thou/uL (4.8-10.8) 02/29/20 17:58 Hgb 13.3 g/dL (12.0-16.0) 02/29/20 17:58 Hct 38.9 % (36.0-47.0) 02/29/20 17:58 MCV 94.0 fL (78.0-98.0) 02/29/20 17:58 Plt Count 206 thou/uL (130-400) 02/29/20 17:58 Neutrophils % 61.9 % (42.0-75.0) 02/29/20 17:58 Sodium 146 mmol/L (136-145) H 02/29/20 17:58 Potassium 4.0 mmol/L (3.5-5.1) 02/29/20 17:58 Chloride 108 mmol/L (98-107) H 02/29/20 17:58 Carbon Dioxide 27 mmol/L (23-31) 02/29/20 17:58 BUN 23 mg/dL (9.8-20.1) H 02/29/20 17:58 Creatinine 1.22 mg/dL (0.6-1.1) H 02/29/20 17:58 Glucose 105 mg/dL (83-110) 02/29/20 17:58 Calcium 9.3 mg/dL (7.8-10.44) 02/29/20 17:58 Total Bilirubin 0.5 mg/dL (0.2-1.2) 02/29/20 17:58 AST 25 U/L (5-34) 02/29/20 17:58 ALT 30 U/L (8-55) 02/29/20 17:58 Alkaline Phosphatase 109 U/L (40-110) 02/29/20 17:58 Troponin I 0.019 ng/mL (< 0.028) 02/29/20 17:58 Serum Total Protein 6.7 g/dL (6.0-8.3) 02/29/20 17:58 Albumin 4.1 g/dL (3.4-4.8) 02/29/20 17:58 Urine Ketones Negative mg/dL (Negative) 02/29/20 18:50 Urine Blood Negative (Negative) 02/29/20 18:50 Urine Nitrite Negative (Negative) 02/29/20 18:50 Ur Leukocyte Esterase 500 Shawna/uL (Negative) A 02/29/20 18:50 Urine RBC 4-6 HPF (0-3) A 02/29/20 18:50 Urine WBC 21-50 HPF (0-3) A 02/29/20 18:50 Ur Squamous Epith Cells 4-6 HPF (0-3) A 02/29/20 18:50 Urine Bacteria 1+ HPF (None Seen) A 02/29/20 18:50 ASSESSMENT AND PLAN: Ms. Suarez is a 69-year-old female, who presented with history of hypertension, hyperlipidemia, and prior transient ischemic attacks, presented with a 2-3 hour history of left upper and lower extremity numbness with weakness of the left lower extremity, which resolved in 2-3 hours. Most likely, transient ischemic attack. MRI of the brain reviewed, which was negative for acute intracranial pathology. CTA of the head and neck did not reveal hemodynamically significant stenosis. Strict control of blood pressure and blood glucose. Check hemoglobin A1c, fasting lipid panel, and TSH. Telemetry to rule out arrhythmias. 2D echo to evaluate for left ventricular ejection fraction. Continue home medications. Continue medical management per primary team. The patient takes baby aspirin at home, consider increasing to full dose of aspirin. Continue high-intensity statin for secondary stroke prevention. Neuro checks every 4 hours. PT/OT/speech. DVT prophylaxis. We will continue to follow. Thank you for the consult. Job ID: [id number] CHRIS
[2020-03-01 13:08] VITALS: BMI 28.8
[2020-03-01] MEDS ORDERED: hydrALAZINE 20 MG/ML VIAL SLOW IVP PRN (13:56)
[2020-03-01] MEDS ORDERED: Carvedilol 25 MG TAB PO SCH (14:00)
[2020-03-01 14:26] LABS: SARS-CoV-2 MS2 Positive; SARS-CoV-2 N Gene Negative; SARS-CoV-2 S Gene Negative; SARS-CoV-2 by NAA Not Detected (NotDetected); SARS-CoV-2 orf1ab Negative
[2020-03-01] MEDS ORDERED: Acetaminophen 325 MG TAB PO PRN (17:45)
--- NOTE | 2020-03-01 20:23 | ULT ---
ULTRASOUND CAROTID STANDARD 03/01/20 HISTORY: Right sided weakness. COMPARISON: CT angiogram neck 2019. Real time manrique scale color and spectral analysis of the extracranial carotid and vertebral arteries. Extensive atherosclerotic plaque throughout both common carotid arteries and proximal internal caroti d artery. No elevated peak systolic velocities within the internal carotid arteries. IMPRESSION: No hemodynamically significant stenosis. POS: HOME
[2020-03-01] MEDS ORDERED: Atorvastatin Calcium 20 MG TAB PO SCH (21:00)
--- NOTE | 2020-03-01 22:53 | PDOC.HOSPP ---
- Subjective Encounter Date: 03/01/20 Encounter Time: 10:00 Subjective: Patient was seen and examined in bed. She had a generally good night. No weakness was worsening slurring of speech No chest pain or shortness of breath. - Objective Vital Signs & Weight: Vital Signs (12 hours) Temp Pulse Resp BP BP BP Pulse Ox 03/01/20 20:00 97.5 F L 72 15 168/97 H 96 03/01/20 17:50 16 164/94 H 03/01/20 16:04 97.5 F L 65 12 166/108 H 166/108 H 96 03/01/20 15:22 16 166/108 H 03/01/20 13:06 97.6 F 75 18 201/105 H 97 Weight Weight 189 lb 4.8 oz I&O: 02/29/20 03/01/20 03/02/20 06:59 06:59 06:59 Intake Total 240 Balance 240 Result Diagrams: 03/01/20 04:17 03/01/20 04:17 Hospitalist ROS - Medication Medications: Active Medications Generic Name Dose Route Start Last Admin Trade Name Freq PRN Reason Stop Dose Admin Acetaminophen 650 mg 03/01/20 17:45 03/01/20 20:54 Acetaminophen 325 Mg Tab PO 650 mg Q6H PRN Administration Pain Atorvastatin Calcium 20 mg 03/01/20 21:00 03/01/20 20:55 Atorvastatin Calcium 20 Mg Tab PO Not Given HS ADELIA Carvedilol 25 mg 03/01/20 14:00 03/01/20 14:41 Carvedilol 25 Mg Tab PO 25 mg 1400 ADELIA Administration Enoxaparin Sodium 40 mg 03/01/20 09:00 03/01/20 08:28 Enoxaparin Sodium 40 Mg/0.4 Ml Syringe SC 40 mg 0900 ADELIA Administration - Exam General Appearance: awake alert Heart: RRR, no murmur, no gallops, normal peripheral pulses Respiratory: no wheezes, no rales, no ronchi, no tachypnea Gastrointestinal: soft, non-tender, non-distended, normal bowel sounds, no palpable masses Extremities: no cyanosis, no clubbing, no edema Neurological: cranial nerve grossly intact, no weakness (Besides slurred speech), no focal deficits, no new deficit Psychiatric: normal affect, normal behavior, A&O x 3 Hosp A/P - Plan This is a 69-year-old female patient with a history of hypertension and stroke admitted on account of left sided weakness with concerns for TIA/stroke. TIA CT scan and follow-up MRI well negative. CTA head was negative Plan is to do carotid Doppler scan scan/echocardiogram Previously been on low-dose aspirin now increased to high Also has been on Plavix for coronary artery diseasewe will continue Discharge after evaluation of echo in a.m. Hypertension Osteoporosis hypertension We will start home carvedilol today Monitor BP NATIVIDAD Resolved
[2020-03-01] MEDS ORDERED: Aspirin 325 mg Enteric Coated Tablet PO SCH (23:00)
[2020-03-02 07:30] VITALS: TEMP 98
[2020-03-02] MEDS: Enoxaparin Sodium 40 MG/0.4 ML SYRINGE SC SCH (08:51)
[2020-03-02] MEDS ORDERED: Aspirin 325 mg Enteric Coated Tablet PO SCH (09:00)
[2020-03-02] MEDS ORDERED: Clopidogrel Bisulfate 75 MG TAB PO SCH (09:00)
[2020-03-02] MEDS ORDERED: Carvedilol 25 MG TAB PO SCH (09:00)
[2020-03-02 10:28] VITALS: BP 120/62
--- NOTE | 2020-03-02 13:44 | PDOC.NEUPN ---
- Subjective Encounter Date: 03/02/20 Subjective: Patient denies any new complaints in the last 24 hours. - Objective Vital Signs & Weight: Vital Signs (12 hours) Temp Pulse Pulse Pulse Resp BP BP 03/02/20 10:28 03/02/20 08:51 03/02/20 08:50 72 84 182/100 H 186/102 H 03/02/20 08:15 03/02/20 07:20 98 F 72 16 03/02/20 04:00 97.9 F 95 20 BP BP BP Pulse Ox 03/02/20 10:28 120/62 03/02/20 08:51 98 03/02/20 08:50 03/02/20 08:15 182/100 H 03/02/20 07:20 98 03/02/20 04:00 168/96 H 95 Weight Weight 189 lb 4.8 oz I&O: 03/01/20 03/02/20 03/03/20 06:59 06:59 06:59 Intake Total 240 650 Balance 240 650 Result Diagrams: 03/01/20 04:17 03/01/20 04:17 Radiology Reviewed by me: Yes EKG Reviewed by me: Yes ROS - Review of Systems Constitutional: denies: fever, chills, sweats, weakness, malaise, other ENT: denies: ear pain, ear discharge, nose pain, nose discharge, nose congestion, mouth pain, mouth swelling, throat pain, throat swelling, other Respiratory: denies: cough, dry, shortness of breath, hemoptysis, SOB with excertion, pleuritic pain, sputum, wheezing, other Cardiovascular: denies: no pertinent history, AFIB, CAD, CHF, HTN, GA, Syncope, Hyperlipidemia, Mitral valve stenosis, Aortic stenosis, Valve insufficiency, Pulmonary hypertension, Other Gastrointestinal: denies: nausea, vomiting, abdominal pain, diarrhea, constipation, melena, hematochezia, other Genitourinary: denies: dysuria, frequency, incontinence, hematuria, retention, other Musculoskeletal: denies: neck pain, shoulder pain, arm pain, back pain, hand pain, leg pain, foot pain, other Skin: denies: rash, lesions, vivien, bruising, other Neurological: denies: weakness, numbness, incoordination, change in speech, confusion, seizures, other All Systems: All other systems reviewed; all pertinent +/- noted in HPI/Subj - Medication Medications: Active Medications Generic Name Dose Route Start Last Admin Trade Name Freq PRN Reason Stop Dose Admin Acetaminophen 650 mg 03/01/20 17:45 03/01/20 20:54 Acetaminophen 325 Mg Tab PO 650 mg Q6H PRN Administration Pain Aspirin 325 mg 03/02/20 09:00 03/02/20 08:51 Aspirin 325 Mg Enteric Coated Tablet PO 325 mg DAILY ADELIA Administration Atorvastatin Calcium 20 mg 03/01/20 21:00 03/01/20 20:55 Atorvastatin Calcium 20 Mg Tab PO Not Given HS ADELIA Carvedilol 25 mg 03/02/20 09:00 03/02/20 08:51 Carvedilol 25 Mg Tab PO 25 mg 09 ADELIA Administration Clopidogrel Bisulfate 75 mg 03/02/20 09:00 03/02/20 08:51 Clopidogrel Bisulfate 75 Mg Tab PO 75 mg DAILY ADELIA Administration Enoxaparin Sodium 40 mg 03/01/20 09:00 03/02/20 08:51 Enoxaparin Sodium 40 Mg/0.4 Ml Syringe SC 40 mg 899 ADELIA Administration Sodium Chloride 10 ml 02/29/20 21:08 03/02/20 08:51 Flush - Normal Saline 10 Ml Syringe IVF 10 ml PRN PRN Administration Saline Flush - Exam General Appearance: awake alert Eye: PERRL ENT: normocephalic atraumatic Neck: supple Respiratory: CTAB Cardiovascular: RRR Gastrointestinal: soft Extremities: no cyanosis Skin: normal turgor Neurological: CN's grossly intact, normal sensation to touch, no weakness, no focal deficits, no new deficit Musculoskeletal: normal tone, normal strength, no muscle wasting PSYCH: normal affect, normal behavior, A&O x 3 Results - Labs Result Diagrams: 03/01/20 04:17 03/01/20 04:17 Lab results: WBC 6.2 thou/uL (4.8-10.8) 03/01/20 04:17 Hgb 13.4 g/dL (12.0-16.0) 03/01/20 04:17 Hct 38.3 % (36.0-47.0) 03/01/20 04:17 MCV 95.3 fL (78.0-98.0) 03/01/20 04:17 Plt Count 177 thou/uL (130-400) 03/01/20 04:17 Neutrophils % 57.9 % (42.0-75.0) 03/01/20 04:17 Sodium 142 mmol/L (136-145) 03/01/20 04:17 Potassium 3.8 mmol/L (3.5-5.1) 03/01/20 04:17 Chloride 106 mmol/L (98-107) 03/01/20 04:17 Carbon Dioxide 26 mmol/L (23-31) 03/01/20 04:17 BUN 22 mg/dL (9.8-20.1) H 03/01/20 04:17 Creatinine 0.99 mg/dL (0.6-1.1) 03/01/20 04:17 Glucose 102 mg/dL (83-110) 03/01/20 04:17 Calcium 9.1 mg/dL (7.8-10.44) 03/01/20 04:17 Total Bilirubin 0.5 mg/dL (0.2-1.2) 02/29/20 17:58 AST 25 U/L (5-34) 02/29/20 17:58 ALT 30 U/L (8-55) 02/29/20 17:58 Alkaline Phosphatase 109 U/L (40-110) 02/29/20 17:58 Troponin I Less than 0.010 ng/mL (< 0.028) 02/29/20 23:50 Serum Total Protein 6.7 g/dL (6.0-8.3) 02/29/20 17:58 Albumin 4.1 g/dL (3.4-4.8) 02/29/20 17:58 Urine Ketones Negative mg/dL (Negative) 02/29/20 18:50 Urine Blood Negative (Negative) 02/29/20 18:50 Urine Nitrite Negative (Negative) 02/29/20 18:50 Ur Leukocyte Esterase 500 Shawna/uL (Negative) A 02/29/20 18:50 Urine RBC 4-6 HPF (0-3) A 02/29/20 18:50 Urine WBC 21-50 HPF (0-3) A 02/29/20 18:50 Ur Squamous Epith Cells 4-6 HPF (0-3) A 02/29/20 18:50 Urine Bacteria 1+ HPF (None Seen) A 02/29/20 18:50 - Radiology Interpretation MRI - head Additional Comment: No acute intracranial pathology. PN A/P (1) TIA (transient ischemic attack) Code(s): G45.9 - TRANSIENT CEREBRAL ISCHEMIC ATTACK, UNSPECIFIED Status: Acute (2) Hypertension Code(s): I10 - ESSENTIAL (PRIMARY) HYPERTENSION Status: Acute - Plan Daily Plan: plan discussed w/ family, PT/OT, speech therapy, DVT proph w/SCDs 69 year old presented with acute onset left sided weakness with slurred speech which is resolved within couple of hours. Most likely TIA. MRI Brain reviewed which was negative for acute intracranial pathology. CTA head negative for hemodynamically significant stenosis. Carotid dopplers did not have hemodynamically significant stenosis. 2 D Echo completed. Patient will folow up with cardiology as outpatient er primary attending Telemetry Strict control of BP and BG. Continue aspirin, plavix and high intensity statin for secondary stroke prevention. PT/OT/Speech Continue home medications Continue medical management per primary team. Plan discussed in detail with the patient, , nursing staff and primary attending Dr. Durand.
[2020-03-03] MEDS ORDERED: Amlodipine 10 MG TAB PO SCH (09:00)
== END 2020-03-02 15:54 | disposition home or self-care (01) | DRG 69 ==
LOC: ERS 16:20 → ERHOLD 18:53 → 2SE 18:57 → OBSVTOIN 03-01 17:47
PROVIDERS: ADMIT Student in an Organized Health Care Education/Training Program; ATTEND Student in an Organized Health Care Education/Training Program
DX: G45.9 Transient cerebral ischemic attack, unspecified (principal); N17.9 Acute kidney failure, unspecified; I10 Essential (primary) hypertension; E78.5 Hyperlipidemia, unspecified; Z66 Do not resuscitate; R53.1 Weakness; Z20.828 Contact with and (suspected) exposure to other viral communicable diseases; Z88.2 Allergy status to sulfonamides; Z88.0 Allergy status to penicillin; Z88.8 Allergy status to other drugs, medicaments and biological substances; Z86.73 Personal history of transient ischemic attack (TIA), and cerebral infarction without residual deficits; I25.2 Old myocardial infarction; Z90.49 Acquired absence of other specified parts of digestive tract; Z90.710 Acquired absence of both cervix and uterus; Z79.82 Long term (current) use of aspirin; Z79.01 Long term (current) use of anticoagulants; Z79.899 Other long term (current) drug therapy
CPT/HCPCS: 36415; 70450; 70496; 70551; 71045; 80048; 80053; 80061; 81003; 81015; 83735; 84484; 85025; 87086; 87635; 93005; 93306; 93880; 96372; G0378; J1650; Q9967; U0003

== ENCOUNTER 2022-03-23 13:13 | Emergency (ER) | payer MEDICARE ==
[2022-03-23] MEDS ORDERED: niCARdipine 25 MG/10 ML VIAL ONE (13:32)
[2022-03-23] MEDS ORDERED: FENTANYL 50 MCG/ML 1 ML VIAL ONE (13:40)
[2022-03-23 13:55] LABS: #Eosinphils 0.1 thou/uL (0.0-0.7); #Lymphocytes 2.2 thou/uL (1.20-3.40); #Monocytes 0.8 thou/uL (0.11-0.59); #Neutrophils 7.1 thou/uL (1.40-6.50); %Basophils 0.2 % (0.0-1.0); %Eosinophils 1.4 % (0.0-10.0); %Lymphocytes 21.8 % (21.0-51.0); %Monocytes 7.8 % (0.0-10.0); %Neutrophils 68.8 % (42.0-75.0); Hemoglobin 15.3 g/dL (12.0-16.0); Mean Corpuscular HGB CONC 34.2 g/dL (32.0-36.0); Mean Corpuscular Hemoglobin 31.7 pg (27.0-31.0); Mean Corpuscular Volume 92.7 fl (78.0-98.0); Platelet Count 205 10x3/uL (130-400); RBC Distribution Width 14.1 % (11.5-14.5); Red Blood Cell (RBC) Count 4.81 mill/uL (4.20-5.40); White Blood Cell (WBC) Count 10.3 10x3/uL (4.8-10.8)
[2022-03-23 14:06] LABS: INR-International Normal Ratio 0.9; PTT 27.4 sec (22.9-36.1); Prothrombin Time 12.9 sec (12.0-14.7)
[2022-03-23 14:11] LABS: ALT (SGPT) 24 U/L (8-55); AST (SGOT) 28 U/L (5-34); Albumin 4.5 g/dL (3.4-4.8); Alkaline Phosphatase 146 U/L (40-110); Anion Gap 14 mmol/L (10-20); BUN (Urea Nitrogen) 15 mg/dL (9.8-20.1); Bilirubin, Total 0.7 mg/dL (0.2-1.2); Calc. Creatinine Clearance 0 mL/min (70-130); Calcium 9.6 mg/dL (7.8-10.44); Carbon Dioxide 24 mmol/L (23-31); Chloride 105 mmol/L (98-107); Estimated GFR 69; Glucose 113 mg/dL (83-110); Potassium 3.2 mmol/L (3.5-5.1); Protein, Total 7.5 g/dL (5.8-8.1); Sodium 140 mmol/L (136-145)
[2022-03-23] MEDS ORDERED: Ondansetron PF 4 MG/2 ML Vial ONE (14:18)
[2022-03-23] MEDS ORDERED: Promethazine HCl 12.5 MG in Sodium Chloride 0.9% 100 ML IVPB SCH (16:30)
== END 2022-03-23 17:45 | disposition short-term general hospital (02) ==
LOC: ERS 13:13
DX: I62.00 Nontraumatic subdural hemorrhage, unspecified (principal); I10 Essential (primary) hypertension; E78.5 Hyperlipidemia, unspecified; Z79.02 Long term (current) use of antithrombotics/antiplatelets; Z79.82 Long term (current) use of aspirin; Z79.899 Other long term (current) drug therapy
CPT/HCPCS: 36430; 70450; 70496; 70498; 71045; 80053; 84484; 85025; 85610; 85730; 86850; 86900; 86901; 93005; J3010; P9035; 96365; 96366; 96375; J2405; J2550; J3490; Q9967

== ENCOUNTER 2022-05-23 17:44 | Emergency (ER) | payer MEDICARE ==
[2022-05-23 18:37] LABS: #Eosinphils 0.1 thou/uL (0.0-0.7); #Lymphocytes 2.2 thou/uL (1.20-3.40); #Monocytes 0.7 thou/uL (0.11-0.59); #Neutrophils 4.7 thou/uL (1.40-6.50); %Basophils 0.4 % (0.0-1.0); %Eosinophils 1.6 % (0.0-10.0); %Lymphocytes 28.7 % (21.0-51.0); %Monocytes 8.8 % (0.0-10.0); %Neutrophils 60.5 % (42.0-75.0); Hemoglobin 12.9 g/dL (12.0-16.0); Mean Corpuscular HGB CONC 34.2 g/dL (32.0-36.0); Mean Corpuscular Hemoglobin 31.2 pg (27.0-31.0); Mean Corpuscular Volume 91.3 fl (78.0-98.0); Mean Platelet Volume 9.5 fL (7.4-10.4); Platelet Count 211 10x3/uL (130-400); RBC Distribution Width 14.2 % (11.5-14.5); Red Blood Cell (RBC) Count 4.14 mill/uL (4.20-5.40); White Blood Cell (WBC) Count 7.8 10x3/uL (4.8-10.8)
[2022-05-23 18:54] LABS: INR-International Normal Ratio 0.9; PTT 25.9 sec (22.9-36.1); Prothrombin Time 12.8 sec (12.0-14.7)
[2022-05-23 18:57] LABS: ALT (SGPT) 21 U/L (8-55); AST (SGOT) 28 U/L (5-34); Albumin 4.1 g/dL (3.4-4.8); Alkaline Phosphatase 135 U/L (40-110); Anion Gap 14 mmol/L (10-20); BUN (Urea Nitrogen) 18 mg/dL (9.8-20.1); Bilirubin, Total 0.5 mg/dL (0.2-1.2); Calc. Creatinine Clearance 0 mL/min (70-130); Calcium 9.5 mg/dL (7.8-10.44); Carbon Dioxide 23 mmol/L (23-31); Chloride 108 mmol/L (98-107); Estimated GFR 49; Glucose 123 mg/dL (83-110); Potassium 3.2 mmol/L (3.5-5.1); Protein, Total 7.1 g/dL (5.8-8.1); Sodium 142 mmol/L (136-145)
[2022-05-23 19:20] LABS: CKMB 1.2 ng/mL (0-6.6)
[2022-05-23] MEDS ORDERED: Potassium Chloride 20 MEQ TAB ONE (19:48)
== END 2022-05-23 22:24 | disposition home or self-care (01) ==
LOC: ERS 17:44
DX: R51.9 Headache, unspecified (principal); I10 Essential (primary) hypertension; E78.5 Hyperlipidemia, unspecified; Z79.899 Other long term (current) drug therapy; Z79.82 Long term (current) use of aspirin
CPT/HCPCS: 36415; 70496; 70498; 80053; 82553; 84484; 85025; 85610; 85730; 93005; 94760; Q9967

== ENCOUNTER 2022-07-13 14:11 | Emergency (ER) | payer MEDICARE ==
[2022-07-13 15:59] LABS: #Basophils 0.1 thou/uL (0.0-0.2); #Eosinphils 0.2 thou/uL (0.0-0.7); #Lymphocytes 1.5 thou/uL (1.20-3.40); #Monocytes 0.6 thou/uL (0.11-0.59); #Neutrophils 6.1 thou/uL (1.40-6.50); %Basophils 0.6 % (0.0-1.0); %Eosinophils 1.9 % (0.0-10.0); %Lymphocytes 18.1 % (21.0-51.0); %Neutrophils 72.3 % (42.0-75.0); Hemoglobin 13.2 g/dL (12.0-16.0); Mean Corpuscular HGB CONC 33.9 g/dL (32.0-36.0); Mean Corpuscular Hemoglobin 31.1 pg (27.0-31.0); Mean Corpuscular Volume 91.7 fl (78.0-98.0); Mean Platelet Volume 9.1 fL (7.4-10.4); Platelet Count 220 10x3/uL (130-400); RBC Distribution Width 13.7 % (11.5-14.5); Red Blood Cell (RBC) Count 4.25 mill/uL (4.20-5.40); White Blood Cell (WBC) Count 8.4 10x3/uL (4.8-10.8)
[2022-07-13 16:31] LABS: ALT (SGPT) 16 U/L (8-55); AST (SGOT) 18 U/L (5-34); Albumin 4.4 g/dL (3.4-4.8); Alkaline Phosphatase 156 U/L (40-110); Anion Gap 18 mmol/L (10-20); BUN (Urea Nitrogen) 21 mg/dL (9.8-20.1); Bilirubin, Total 0.5 mg/dL (0.2-1.2); Calc. Creatinine Clearance 0 mL/min (70-130); Calcium 9.3 mg/dL (7.8-10.44); Carbon Dioxide 21 mmol/L (23-31); Chloride 108 mmol/L (98-107); Estimated GFR 57; Globulin 2.4 g/dL (2.4-3.5); Glucose 98 mg/dL (83-110); Potassium 3.8 mmol/L (3.5-5.1); Protein, Total 6.8 g/dL (5.8-8.1); Sodium 143 mmol/L (136-145)
== END 2022-07-13 18:36 | disposition home or self-care (01) ==
LOC: ERS 14:11
DX: R06.00 Dyspnea, unspecified (principal); I10 Essential (primary) hypertension; E78.5 Hyperlipidemia, unspecified; Z79.82 Long term (current) use of aspirin; Z79.899 Other long term (current) drug therapy
CPT/HCPCS: 36415; 71045; 80053; 84484; 85025; 93005